=== PATIENT | female | born 1970 | race African-American/Black ===

== ENCOUNTER 2018-04-14 20:11 | Emergency (ER) | payer SELFPAY ==
--- NOTE | 2018-04-14 20:13 | ED NEURO DEFICIT/STROKE ---
History of Present Illness General Chief Complaint: Neuro Symptoms/ Deficit Stated Complaint: BIBA STROKE ALERT Source: patient, family, EMS Exam Limitations: clinical condition Vital Signs & Intake/Output Vital Signs & Intake/Output Vital Signs Date Time Temp Pulse Resp B/P B/P Pulse O2 O2 Flow FiO2 Mean Ox Delivery Rate 04/14 2040 80 170/100 04/14 2031 97.8 95 Nasal 2.0L Cannula 04/14 2024 87 15 170/100 Allergies Coded Allergies: No Known Allergies (04/14/18) Reconcile Medications No Known Home Medications Triage Nurses Notes Reviewed? yes Onset: Abrupt Duration: minute(s): Timing: single episode today Severity: severe New Weakness: LUE, LLE Glaucoma? No Impaired Ability: difficult to stand Baseline: alert, oriented x 3 Associated Symptoms: left arm and leg weakness HPI: 48 yo woman prior history of high blood pressure, off meds, presents with sudden onset of left arm and left leg weakness approximately 40 minutes prior to arrival. Her mother shares that at approximately 730pm, her daughter noted left arm weakness and difficulty walking. 911 called. Medics found her with dense left arm and left leg paralysis. She notes no headache. fever, chills, chest pain, abdominal pain. Past History Travel History Traveled to [place] past 21 day No Medical History Any Pertinent Medical History? see below for history Cardiovascular: hypertension Surgical History Surgical History: none Family History Hx Contributory? No Review of Systems Review of Systems Constitutional: Denies: see HPI. Comments ROS limited due to patient condition Physical Exam Physical Exam General Appearance: well developed/nourished, no apparent distress Head: atraumatic, normal appearance Eyes: Bilateral: other (right gaze preference). Ears, Nose, Throat: normal ENT inspection, moist mucous membrane Neck: normal inspection, supple, full range of motion Respiratory: normal breath sounds, chest non-tender, no respiratory distress, quiet respiration Cardiovascular: regular rate/rhythm Gastrointestinal: normal bowel sounds, soft, non-tender, no organomegaly Back: normal inspection, normal range of motion Extremities: normal range of motion Psychiatric: awake, oriented x 3, lethargic, but easily arousable and responsive to questions Cranial Nerves: slurred speech, intact gag reflex, right gaze preference with both eyes. Coordination/Gait: left arm 0/5 strength, left leg 1/5 strength, no DTR's on left. light touch intact bilaterally in upper and lower extremities. Motor/Sensory: see above Skin: intact Core Measures CVA/TIA Diagnosis: Yes NIH Stroke Scale NIH Stroke Scale Response Value Level of Consciousness drowsy 1 LOC Questions answers both correctly 0 LOC Commands obeys both correctly 0 Best Gaze partial gaze palsy 1 Visual Wade no visual loss 0 Facial Paresis normal 0 Motor Arm - Left no movement 4 Motor Arm - Right no drift 0 Motor Leg - Left no effort against gravity 3 Motor Leg - Right no drift 0 Limb Ataxia no ataxia 0 Sensory normal 0 Best Language mild to moderate aphasia 1 Dysarthria mild/mod slurring words 1 Extinction and Inattention partial neglect 1 Total 12 Date Last Known Well: 04/14/18 Time Last Known Well: 1929 Symptom Start Date: 04/14/18 Symptom Start Time: 1929 tPA Risk/Benefit discussion I have discussed the risks, benefits, and alternatives of Alteplase treatment including: - If given promptly, can resolve or have major improvement in stroke symptoms. - Bleeding (hemorrhage) is the most common risk that can occur. - Bleeding may occur into the brain and cause~intermediate serious disability~ including - this is rare, affecting about 1% of patients. - Alternative treatments with proven benefit for patients with stroke include aspirin and care in a specialized unit where staff members pay careful attention to a variety of basic aspects of care. Sepsis Present: No Sepsis Focused Exam Completed? No Progress Differential Diagnosis: cva vs sah vs ich vs other. Plan of Care: Orders Procedure Date/time Status TROPONIN LEVEL 04/14 2014 Complete LIPASE 04/14 2014 Complete HEPATIC FUNCTION PANEL 04/14 2014 Complete CBC WITHOUT DIFFERENTIAL 04/14 2014 Complete BASIC METABOLIC PANEL 04/14 2014 Complete AMYLASE 04/14 2014 Complete EKG 04/14 2014 Active Laboratory Tests 04/14/182024: Anion Gap 11, Estimated GFR 59 L, BUN/Creatinine Ratio 16.0, Glucose 100 H, Calcium 9.1, Total Bilirubin 0.4, Direct Bilirubin 0.2, AST 24, ALT 21, Alkaline Phosphatase 110, Troponin I < 0.01, Total Protein 7.9, Albumin 4.1, Amylase 73, Lipase 50, CBC w Diff NO MAN DIFF REQ, RBC 4.44, MCV 82.1, MCH 27.0, MCHC 32.8 L, RDW 14.6 H, MPV 7.0 L, Gran % 59.5, Lymphocytes % 34.8, Monocytes % 4.9, Eosinophils % 0.7, Basophils % 0.1, Absolute Granulocytes 5.6, Absolute Lymphocytes 3.3, Absolute Monocytes 0.5, Absolute Eosinophils 0.1, Absolute Basophils 0 Diagnostic Imaging: Viewed by Me: CT Scan. Discussed w/RAD: CT Scan. Radiology Impression: PATIENT: ALESSIA DIAZ PRESENT AGE: 48 PATIENT ACCOUNT NO: [id number] : 70 LOCATION: [facility] ORDERING PHYSICIAN: Eric Acosta MD SERVICE DATE: 04/14/18 EXAM TYPE: CAT - CT HEAD WO IV CONTRAST EXAMINATION: CT HEAD WITHOUT CONTRAST CLINICAL INFORMATION: Left-sided weakness COMPARISON: None TECHNIQUE: Contiguous axial imaging was performed from the skull base to vertex without intravenous administration of contrast. DLP: 609.47 mGy-cm FINDINGS: There is a focal intraparenchymal hemorrhage on the right in the parietal lobe in the subcortical white matter involving the external capsule. The bleed measures approximately 4 x 2.7 cm. The bleed is causing mass effect. There is about 3 mm midline shift from right to left. Bleeding in this area suggests a hypertensive etiology. IMPRESSION: Intraparenchymal hemorrhage in the right parietal lobe in the subcortical white matter near the external capsule with mass effect causing about 3 mm midline shift from right to left. This critical result was discussed with Dr. Farris on 04/12/2018, 8:30 PM and it was ascertained that the content and urgency of the report was understood at the time of direct communication. DICTATED BY: Jey Hawley MD DATE/TIME DICTATED:04/14/182028 POWDER BLENDER :PRETTY DATE/TIME TRANSCRIBED:04/14/182028 CONFIDENTIAL, DO NOT COPY WITHOUT APPROPRIATE AUTHORIZATION. <Electronically signed in Other Vendor System> SIGNED BY: Jey Hawley MD 04/14/182036 Initial ED EKG: nsr, no acute change Departure Departure Disposition: OTHER [facility]AL [facility]OS[facility] (ACUTE) Condition: Stable Clinical Impression Primary Impression: Intracranial hemorrhage Referrals: Unknown (PCP/Family) Departure Forms: Customer Survey General Discharge Information Prescriptions: Current Visit Scripts No Known Home Medications Comments 04/14/18, 20:28... discussed with cassia neurosurg/neurointerventional... will give labetolol 5mg iv x 1 to reduce bp with goal sbp <140, pt with gag reflex, responsive, no intubation... pt transferred emergently to [facility]. Mother signed appropriate consent form. Critical Care Note Critical Care Note Critical Care Time: 30-74 min
[2018-04-14 20:35] LABS: ABSOLUTE BASOPHIL COUNT 0 /CUMM (0.0-0.2); ABSOLUTE EOSINOPHIL COUNT 0.1 /CUMM (0.0-0.7); ABSOLUTE GRANULOCYTE CT 5.6 /CUMM (1.4-6.5); ABSOLUTE LYMPH COUNT 3.3 /CUMM (1.2-3.4); ABSOLUTE MONOCYTE COUNT 0.5 /CUMM (0.10-0.60); BASOPHIL % 0.1 % (0.0-2.0); EOSINOPHIL % 0.7 % (0-5); GRANULOCYTE % 59.5 % (42.2-75.2); HEMATOCRIT 36.5 % (37-47); MEAN CORPUSCULAR HGB CONC 32.8 G/DL (33.0-37.0); MEAN CORPUSCULAR VOLUME 82.1 FL (81.0-99.0); PLATELET COUNT 333 /CUMM (130-400); RBC DISTRIBUTION WIDTH 14.6 % (11.5-14.5); RED BLOOD CELL CT 4.44 /CUMM (4.20-5.40); WHITE BLOOD CELL COUNT 9.4 /CUMM (4.8-10.8)
--- NOTE | 2018-04-14 20:37 | CT SCAN REPORT ---
EXAMINATION: CT HEAD WITHOUT CONTRAST CLINICAL INFORMATION: Left-sided weakness COMPARISON: None TECHNIQUE: Contiguous axial imaging was performed from the skull base to vertex without intravenous administration of contrast. DLP: 609.47 mGy-cm FINDINGS: There is a focal intraparenchymal hemorrhage on the right in the parietal lobe in the subcortical white matter involving the external capsule. The bleed measures approximately 4 x 2.7 cm. The bleed is causing mass effect. There is about 3 mm midline shift from right to left. Bleeding in this area suggests a hypertensive etiology. IMPRESSION: Intraparenchymal hemorrhage in the right parietal lobe in the subcortical white matter near the external capsule with mass effect causing about 3 mm midline shift from right to left. This critical result was discussed with Dr. Farris on 04/12/2018, 8:30 PM and it was ascertained that the content and urgency of the report was understood at the time of direct communication.
[2018-04-14 20:40] VITALS: BP 170/100
== END 2018-04-14 20:49 | disposition short-term general hospital (02) ==
LOC: ERH 20:11
PROVIDERS: Pediatrics
DX: I62.9 Nontraumatic intracranial hemorrhage, unspecified (principal); I10 Essential (primary) hypertension; R53.1 Weakness
CPT/HCPCS: 93005; 93010; 96374; 99291